=== PATIENT | female | born 1945 | race Caucasian/White ===

== ENCOUNTER 2018-06-20 09:49 | Outpatient (CLI) | payer OTHER ==
--- NOTE | 2018-06-20 12:10 | DI ---
EXAM: Radiographs, lumbar spine HISTORY: Low back pain. COMPARISON: None available. TECHNIQUE: Three views. FINDINGS: Curvature and alignment are normal. Vertebral body heights are maintained. Disc heights are normal. Mild facet arthropathy is greater in the lower lumbar spine. This space narrowing with endplate sclerosis and osteophyte formation noted at T11-12. Sacral arcuate lines are intact. Coral lithiasis noted. Aortic atherosclerotic calcifications are present. IMPRESSION: Mild facet arthropathy, greater in the lower lumbar spine.
--- NOTE | 2018-06-20 12:15 | DI ---
Exam: Nine x-rays of the cervical spine. Comparison: None available. Reason for exam: Neck pain. FINDINGS: No acute fracture or listhesis. The vertebral body and intervertebral body disc space hei ghts appear relatively well maintained. The prevertebral soft tissues are within normal limits. Zoraida ging is obtained on the lateral and flexion/extension views spanning C2-C5. The C5-C6, C6-7 and C7-T1 interspaces are not seen on the flexion and extension radiographs secondary to summation artifact fr om the patient's shoulders. The dens appears intact on the open-mouth odontoid view. Impression: 1. No acute fracture or listhesis in the imaged portions of the cervical spine. 2. No abnormal motion segments are seen on the flexion and extension radiographs spanning C2-C5. The lower cervical segments are not well evaluated on flexion or extension radiographs. 3. The dens appears intact on the open-mouth odontoid view
== END 2018-06-20 09:50 | disposition home or self-care (01) ==
LOC: RAD 09:49
PROVIDERS: ATTEND Family Medicine
DX: M54.5 Low back pain (principal); M54.2 Cervicalgia